=== PATIENT | male | born 1995 | race African-American/Black ===

== ENCOUNTER 2018-01-11 10:29 | Emergency (ER) | payer SELFPAY ==
[2018-01-11] MEDS ORDERED: Ketorolac 60 MG/2 ML SDV IM ONE ×2 (11:00→11:39)
[2018-01-11] MEDS ORDERED: Ketorolac 30 MG/ML SDV IVPUSH ONE (11:09)
--- NOTE | 2018-01-11 11:09 | EDM.PDOC ---
<Mason Sousa - Last Filed: 01/11/18 11:18> ED HPI GENERAL MEDICAL PROBLEM - General Chief Complaint: Abdominal Pain Stated Complaint: ABD PAIN Time Seen by Provider: 01/11/18 11:00 Source of Information: Reports: Patient History Limitations: Reports: No Limitations - History of Present Illness INITIAL COMMENTS - FREE TEXT/NARRATIVE: HISTORY AND PHYSICAL: History of present illness: 22-year-old male presents to emergency room with a chief complaint of abdominal pain since 7:30 AM this morning. Patient notes that when he went to bed last night he had no abdominal pain but when he woke up this morning he had abdominal pain that began in the upper portion of the abdomen but is now diffusely spread out. Pain is sharp in nature but cannot be localized. Patient ate a burrito last night and tolerated this well and has eaten this in the past with no side effects. Patient has no food allergies. He has been afebrile. He has no changes in bowel or bladder habits. Patient does not drink. No prior abdominal surgeries. No prior abdominal pain like this current episode. No history of ulcers. Denies black or bloody stools. Patient does not currently take any scheduled medications. He did take 1 Zantac this morning to see if that would help with his abdominal pain and it did not help. He notes that he has consumed very little water over the last 3-4 days but has been drinking a lot of soda. He has no other acute complaints this morning. Review of systems: As per history of present illness and below otherwise all systems reviewed and negative. Past medical history: As per history of present illness and as reviewed below otherwise noncontributory. Surgical history: As per history of present illness and as reviewed below otherwise noncontributory. Social history: No reported history of drug or alcohol abuse. Family history: As per history of present illness and as reviewed below otherwise noncontributory. Physical exam: Lungs: Clear to auscultation, breath sounds equal bilaterally, chest nontender. Heart: S1S2, regular, negative for clicks, rubs, or JVD. Abdomen: Diminished bowel sounds diffusely. Mild tenderness with palpation in the right and left lower quadrants. No rebound tenderness or guarding appreciated. No organomegaly appreciated. Genitourinary: Deferred. Rectal: Deferred. Diagnostics: CBC, CMP, lipase, UA, troponin, CT abdomen/pelvis Therapeutics: 500 mL bolus normal saline, 30 mg IV Toradol Impression: [] Plan: [] Definitive disposition and diagnosis as appropriate pending reevaluation and review of above. - Related Data Allergies Allergy/AdvReac Type Severity Reaction Status Date / Time No Known Allergies Allergy Verified 01/11/18 10:45 Home Meds: Home Meds . [No Known Home Meds] 01/11/18 [History] Past Medical History - Past Health History Medical/Surgical History: Denies Medical/Surgical History Social & Family History - Family History Family Medical History: Noncontributory - Tobacco Use Smoking Status *Q: Current Every Day Smoker Years of Tobacco use: 3 Packs/Tins Daily: 0 - Caffeine Use Caffeine Use: Reports: Coffee, Energy Drinks - Recreational Drug Use Recreational Drug Use: Yes Drug Use in Last 12 Months: Yes Recreational Drug Type: Reports: Marijuana/Hashish Other Recreational Drug Type: former marijuana use Course - Vital Signs Last Recorded V/S: Last Vital Signs Temp 98.0 F 01/11/18 10:42 Pulse 66 01/11/18 10:42 Resp 16 01/11/18 10:42 BP 107/68 01/11/18 10:42 Pulse Ox 99 01/11/18 10:42 - Orders/Labs/Meds Labs: Laboratory Tests 01/11/18 01/11/18 01/11/18 Range/Units 11:15 11:15 13:19 WBC 6.79 (4.0-11.0) K/uL RBC 4.36 L (4.50-5.90) M/uL Hgb 11.9 L (13.0-17.0) g/dL Hct 37.3 L (38.0-50.0) % MCV 85.6 (80.0-98.0) fL MCH 27.3 (27.0-32.0) pg MCHC 31.9 (31.0-37.0) g/dL RDW Std Deviation 38.7 (28.0-62.0) fl RDW Coeff of Prateek 12 (11.0-15.0) % Plt Count 122 L (150-400) K/uL MPV 11.60 (7.40-12.00) fL Neut % (Auto) 25.9 L (48.0-80.0) % Lymph % (Auto) 63.5 H (16.0-40.0) % Granite % (Auto) 6.9 (0.0-15.0) % Eos % (Auto) 3.1 (0.0-7.0) % Baso % (Auto) 0.6 (0.0-1.5) % Neut # (Auto) 1.8 (1.4-5.7) K/uL Lymph # (Auto) 4.3 H (0.6-2.4) K/uL Granite # (Auto) 0.5 (0.0-0.8) K/uL Eos # (Auto) 0.2 (0.0-0.7) K/uL Baso # (Auto) 0.0 (0.0-0.1) K/uL Nucleated RBC % 0.0 /100WBC Nucleated RBCs # 0 K/uL Sodium 142 (136-146) mmol/L Potassium 3.8 (3.5-5.1) mmol/L Chloride 108 (98-110) mmol/L Carbon Dioxide 25 (21-31) mmol/L BUN 8 (6.0-23.0) mg/dL Creatinine 1.1 (0.6-1.5) mg/dL Est Cr Clr Drug Dosing 130.58 mL/min Estimated GFR (MDRD) > 60.0 ml/min Glucose 89 (60-110) mg/dL Calcium 9.0 (8.8-10.8) mg/dL Total Bilirubin 1.1 (0.1-1.5) mg/dL AST 23 (5-40) IU/L ALT 14 (8-54) IU/L Alkaline Phosphatase 54 (40-150) Troponin I < 0.10 (0.0-0.29) NG/ML Total Protein 7.4 (6.0-8.0) g/dL Albumin 4.5 (3.5-5.0) g/dL Globulin 2.9 (2.0-3.5) g/dL Albumin/Globulin Ratio 1.6 (1.3-2.8) Lipase 11 (7-80) U/L Urine Color YELLOW Urine Appearance CLEAR Urine pH 7.0 (5.0-8.0) Ur Specific [place] 1.020 (1.001-1.035) Urine Protein NEGATIVE (NEGATIVE) mg/dL Urine Glucose (UA) NEGATIVE (NEGATIVE) mg/dL Urine Ketones NEGATIVE (NEGATIVE) mg/dL Urine Occult Blood NEGATIVE (NEGATIVE) Urine Nitrite NEGATIVE (NEGATIVE) Urine Bilirubin NEGATIVE (NEGATIVE) Urine Urobilinogen 0.2 (<2.0) EU/dL Ur Leukocyte Esterase NEGATIVE (NEGATIVE) Urine RBC 0-1 (0-2/HPF) Urine WBC 0-1 (0-5/HPF) Ur Epithelial Cells RARE (NONE-FEW) Urine Bacteria RARE (NEGATIVE) Meds: Medications Discontinued Medications Generic Name Dose Route Start Last Admin Trade Name Freq PRN Reason Stop Dose Admin Sodium Chloride 500 mls @ 999 mls/hr 01/11/18 11:15 Normal Saline IV STAT APOLONIA Ketorolac Tromethamine 60 mg 01/11/18 11:00 01/11/18 12:37 Toradol IM 01/11/18 11:01 Not Given ONETIME ONE Ketorolac Tromethamine 30 mg 01/11/18 11:09 01/11/18 12:37 Toradol IVPUSH 01/11/18 11:10 Not Given ONETIME ONE Ketorolac Tromethamine 60 mg 01/11/18 11:39 01/11/18 11:52 Toradol IM 01/11/18 11:40 60 mg ONETIME ONE Administration Departure - Departure Disposition: Home, Self-Care 01 Clinical Impression: Abdominal pain - Discharge Information Referrals: PCP,None [Primary Care Provider] - Forms: ED Department Discharge Additional Instructions: General surgery referral for consideration of HIDA scan and continued management Return to emergency room with fever intractable pain or intractable vomiting [place] diet as discussed Fluid hydration techniques as discussed Medication as prescribed [facility] - General Surgery [address], [address] [place] [address] The following information is given to patients seen in the emergency department who are being discharged to home. This information is to outline your options for follow-up care. We provide all patients seen in our emergency department with a follow-up referral. The need for follow-up, as well as the timing and circumstances, are variable depending upon the specifics of your emergency department visit. If you don't have a primary care physician on staff, we will provide you with a referral. We always advise you to contact your personal physician following an emergency department visit to inform them of the circumstance of the visit and for follow-up with them and/or the need for any referrals to a consulting specialist. The emergency department will also refer you to a specialist when appropriate. This referral assures that you have the opportunity for follow-up care with a specialist. All of these measure are taken in an effort to provide you with optimal care, which includes your follow-up. Under all circumstances we always encourage you to contact your private physician who remains a resource for coordinating your care. When calling for follow-up care, please make the office aware that this follow-up is from your recent emergency room visit. If for any reason you are refused follow-up, please contact the [facility] emergency department at and asked to speak to the emergency department charge nurse. <Vincent Aldridge - Last Filed: 01/11/18 13:42> ED HPI GENERAL MEDICAL PROBLEM - History of Present Illness INITIAL COMMENTS - FREE TEXT/NARRATIVE: Patient endorsed to me to follow lab and redirect Agree with history above Patient has right upper quadrant epigastric pain 8 out of 10 with greasy food that is subsided with Toradol and time patient has 0 out of 10 pain at current sleeping comfortably Dr. Sousa was called out for clinic duties Currently no pain no fever nausea vomiting diarrhea constipation chest pain shortness breath headache dizziness palpitation about a urine symptoms Gen. no acute distress HEENT grossly within normal limits Chest clear CV regular Abdomen benign Extremities four-inch motion no edema [employer] alert nonfocal Lab as below Assessment Biliary colic Abdominal pain Plan He'll referral to general surgery Consider HIDA scan testing [place] diet discussed in the interim [facility] ED ROS GENERAL - Review of Systems Review Of Systems: ROS reveals no pertinent complaints other than HPI. ED EXAM, GI/ABD - Physical Exam Exam: See Below Departure - Departure Time of Disposition: 13:41 Condition: Good
[2018-01-11] MEDS ORDERED: Sodium Chloride 0.9% 500 ML IV SCH (11:15)
[2018-01-11 12:02] LABS: CHLORIDE,CL 108 mmol/L (98-110); SODIUM,NA 142 mmol/L (136-146)
--- NOTE | 2018-01-11 13:27 | CT ---
CT of the abdomen and pelvis without contrast. HISTORY: Pain TECHNIQUE: Axial CT images were obtained of the abdomen and pelvis without contrast. Coronal and sagi ttal reconstructions obtained. FINDINGS: The lung bases are clear, no pleural effusion. The liver, spleen, adrenal glands, and pancreas appear unremarkable for noncontrast examination. The gallbladder appears normal. There is no bulky retroperitoneal lymphadenopathy. No abdominal ascites. There are no calcifications noted within the kidneys or along the courses of the ureters bilaterally. The large and small bowel are normal in caliber without evidence of obstruction. The appendix appears normal. There is no bulky pelvic lymphadenopathy. No free fluid. No free air. The urinary bladder ap pears normal. The visualized osseous structures appear normal. IMPRESSION: No acute findings within the abdomen or pelvis.
== END 2018-01-11 13:52 | disposition home or self-care (01) ==
LOC: MW.ED 10:29
DX: R10.32 Left lower quadrant pain (principal); F17.210 Nicotine dependence, cigarettes, uncomplicated
CPT/HCPCS: 36415; 74176; 80053; 81001; 83690; 84484; 85025; 96372; 99284; J1885